=== PATIENT | female | born 1980 | race Caucasian/White ===

== ENCOUNTER → 2025-01-18 | Outpatient (CLI) | payer MEDICARE ==
[2025-01-18 21:40] LABS: Creatinine, Urine Random 376.0 mg/dL (27.00-270.00); Microalb/Creat Ratio UR, Rand 28.989 mg/g (0.000-30.000); Microalbumin, Random Urine 109.0 mg/L (0.000-20.000)
== END | disposition home or self-care (01) ==
LOC: LAB 12:17 → LAB SHORT 12:17
PROVIDERS: Family Medicine
DX: E11.65 Type 2 diabetes mellitus with hyperglycemia (principal)
CPT/HCPCS: 82043; 82570